=== PATIENT | female | born 1985 | race Caucasian/White ===

== ENCOUNTER 2018-06-14 11:16 | Inpatient (IN) | payer OTHER ==
[~2018-06-14] VITALS: Ht 175.3 cm; Wt 82.6 kg
== END 2018-06-16 08:55 | DRG 819 ==
LOC: LDR 11:16 → OB/GYN 06-15 09:04
PROVIDERS: ADMIT Obstetrics & Gynecology Maternal & Fetal Medicine
PROC: 4A1HXCZ Monitoring of Products of Conception, Cardiac Rate, External Approach (ICD-10-PCS; 2018-06-14)
PROC: 0UVC7ZZ Restriction of Cervix, Via Natural or Artificial Opening (ICD-10-PCS; principal; 2018-06-14 18:00)
DX: O34.32 Maternal care for cervical incompetence, second trimester (principal); Z34.02 Encounter for supervision of normal first pregnancy, second trimester

== ENCOUNTER 2018-07-05 13:24 | Outpatient (CLI) | payer OTHER | END 2018-07-05 13:55 | disposition home or self-care (01) | LOC: NST 13:24 | DX: Z34.82 Encounter for supervision of other normal pregnancy, second trimester (principal) ==

== ENCOUNTER 2018-07-26 10:42 | Outpatient (CLI) | payer OTHER | END 2018-07-26 11:32 | disposition home or self-care (01) | LOC: NST 10:42 | DX: Z34.83 Encounter for supervision of other normal pregnancy, third trimester (principal) ==

== ENCOUNTER 2018-08-09 11:02 | Outpatient (CLI) | payer OTHER | END 2018-08-09 12:44 | disposition home or self-care (01) | LOC: NST 11:02 | DX: Z34.83 Encounter for supervision of other normal pregnancy, third trimester (principal) ==

== ENCOUNTER 2018-08-23 11:04 | Outpatient (CLI) | payer OTHER | END 2018-08-23 11:25 | disposition home or self-care (01) | LOC: NST 11:04 | DX: Z34.83 Encounter for supervision of other normal pregnancy, third trimester (principal) ==